=== PATIENT | female | born 1980 | race Caucasian/White ===

== ENCOUNTER 2023-03-08 13:11 | Outpatient (AMB) | payer BC, SELFPAY ==
--- NOTE | 2023-03-08 13:35 | A.OFFVIS_ITS ---
Intake VS Expanded 03/08/23 13:35 03/13/23 14:01 Height 5 ft 4 in 5 ft 4 in Weight 174 lb 13.225 oz 174 lb BMI 30.0 29.9 Intake Visit Reasons: Obesity Allergies No Known Allergies Allergy (Unverified 04/16/20 16:57) HPI Nutrition Presentation0 Details Pt presents for MNT for obesity. Pt was referred by Dr.L Dez Wetzel Pt reports hx of cholecystitis, and recently fatty liver. Patient reports having gained 40 lbs since 2017. Reports challenges related to lack of meal planning. MJP-Tjvddhl-Xg.Jeor Equation Height 5 ft 4 in Weight 174 lb Resting Metabolic Rate 1426.98 Calculated Activity Level Mild Activity Calories Needed to Maintain Weight 1962.10 Diagnosis Nutrition problem #1 excessive energy intake As related to (etiology) #1 diagnosis As evidenced by (sign/symptom) #1 high BMI (30 on 03/08/23) Most Recent Diabetes Results: No Data to Display Assessment & Plan Assessment & Plan (1) Obesity (BMI 30.0-34.9): Code(s): E66.9 - Obesity, unspecified Plan: wt 79 kg Est kcal needs as per MSJ: 5442-7461 (40% carb, 30% protei n/fat) Est fluid needs as per 25 ml/d: 7114-2934 Est prot per day as per 1 g/kg bw: 80g Recommend fiber intake : 8-10 g per day and gradually increase to 25-28 g per day for women and 35-38 g for men or as tolerated Recommend sodium intake per day : less than 2000 mg Educated patient on: ( R = reviewed V = verbalizes understanding N/R = needs review N/A = not applicable * Food sources of carbohydrate, adequate serving sizes and its role in various health conditions: R * Differences between complex carbohydrates a simple carbohydrates, role of fiber in diet: R * Differences between types of fats and role in diet (mono on saturated fat fatty acids, saturated fatty acids, trans fats): R * Food sources of sodium in salt and healthy modifications for heart health in kidney health: R * Healthy plate method concept: R * Physical activity: Benefits a precaution: R Patient Instructions: Practice mindful eating Choose low sugar beverages (dilute juice with water, choose almond milk ,choose water ) Choose low fat foods ( reduce fried foods in general , choose poultry, fish , egg, egg whites, choose baked foods vs fried) see meal plan ideas Coding Level of Care Code Nutr Indiv Intake (06288) Diagnoses Obesity (BMI 30.0-34.9) E66.9 Time Spent (min) 30
[2023-03-13 14:01] VITALS: BMI 29.9
== END 2023-03-08 14:10 | disposition home or self-care (01) ==
PROVIDERS: PCP Internal Medicine; Visit Provider Dietitian, Registered
DX: E66.9 Obesity, unspecified (principal)

== ENCOUNTER → 2023-03-08 13:11 | Outpatient (BNVA) | payer BC, SELFPAY | PROVIDERS: PCP Internal Medicine; Visit Provider Dietitian, Registered | DX: E66.9 Obesity, unspecified (principal); Z68.30 Body mass index [BMI] 30.0-30.9, adult; Z71.3 Dietary counseling and surveillance | CPT/HCPCS: 97802 ==